=== PATIENT | female | born 1980 | race Caucasian/White ===

== ENCOUNTER 2018-10-14 12:47 | Emergency (ER) | payer OTHER ==
[~2018-10-14] VITALS: Ht 165.1 cm; Wt 146.5 kg
[2018-10-14 12:54] VITALS: Ht 165.1 cm; Wt 146.5 kg
[2018-10-14 14:21] VITALS: BP 147/89
== END 2018-10-14 14:21 | disposition home or self-care (01) ==
LOC: ED 12:47
DX: S93.402A Sprain of unspecified ligament of left ankle, initial encounter (principal); Z88.1 Allergy status to other antibiotic agents; W22.8XXA Striking against or struck by other objects, initial encounter; Y93.89 Activity, other specified; Y92.89 Other specified places as the place of occurrence of the external cause; Y99.8 Other external cause status
CPT/HCPCS: Q0092

== ENCOUNTER 2018-10-15 14:32 | Emergency (ER) | payer OTHER ==
[~2018-10-15] VITALS: Ht 165.1 cm; Wt 150.1 kg
[2018-10-15 14:50] VITALS: Ht 165.1 cm; Wt 150.1 kg
[2018-10-15 16:02] LABS: BASOPHIL % 0.3 % (0-2); PLATELET COUNT 276 x10^3mcL (130-400); RED CELL DISTRIBUTION WIDTH 13.9 % (11.5-14.5)
[2018-10-15 16:14] LABS: microscopic required? YES; urine erythrocyte TRACE (NEGATIVE)
[2018-10-15 16:27] LABS: AMPHETAMINE QUAL UR NONE DETECTED (See below)
[2018-10-15 16:44] LABS: CALCIUM 8.8 mg/dL (8.5-10.1); CARBON DIOXIDE 28.4 mmol/L (21-32); CHLORIDE SERUM 104 mmol/L (98-107); CREATININE SERUM 0.9 mg/dL (0.6-1.0); GFR1 > 60 mL/min; GLUCOSE SERUM 108 mg/dL (74-106); POTASSIUM SERUM 3.3 mmol/L (3.5-5.1); SODIUM SERUM 140 mmol/L (136-145)
[2018-10-15 16:57] LABS: ALKALINE PHOSPHATASE 116 U/L (46-116); ALT/SGPT 32 U/L (14-59); AST/SGOT 21 U/L (15-37); CHOLESTEROL 174 mg/dL (<200); HDL CHOLESTEROL 41 mg/dL (40-60); MAGNESIUM 1.9 mg/dL (1.8-2.4); T4(THYROXINE) 7.2 ug/dL (4.7-13.3); TOTAL PROTEIN, SERUM 7.8 g/dL (6.4-8.2)
[2018-10-15 17:03] LABS: ALBUMIN 3.2 g/dL (3.4-5.0)
[2018-10-15 17:53] VITALS: BP 139/80
== END 2018-10-15 17:53 | disposition home or self-care (01) ==
LOC: ED 14:32
PROVIDERS: Emergency Medicine
DX: I16.0 Hypertensive urgency (principal); F41.9 Anxiety disorder, unspecified; E87.6 Hypokalemia; F17.210 Nicotine dependence, cigarettes, uncomplicated; I10 Essential (primary) hypertension; E66.01 Morbid (severe) obesity due to excess calories; Z68.43 Body mass index [BMI] 50.0-59.9, adult; Z90.49 Acquired absence of other specified parts of digestive tract; Z98.890 Other specified postprocedural states; Z88.1 Allergy status to other antibiotic agents
CPT/HCPCS: 36415; 82962; 99406

== ENCOUNTER 2019-05-19 19:21 | Emergency (ER) | payer OTHER ==
[~2019-05-19] VITALS: Ht 167.6 cm; Wt 148.8 kg
[2019-05-19 19:25] VITALS: Ht 167.6 cm; Wt 148.8 kg
[2019-05-19 20:56] LABS: BASOPHIL % 0.4 % (0-2); PLATELET COUNT 278 x10^3mcL (130-400); RED CELL DISTRIBUTION WIDTH 13.9 % (11.5-14.5)
[2019-05-19 20:59] LABS: CALCIUM 8.6 mg/dL (8.5-10.1); CARBON DIOXIDE 28.6 mmol/L (21-32); CREATININE SERUM 1.1 mg/dL (0.6-1.0); POTASSIUM SERUM 3.1 mmol/L (3.5-5.1)
[2019-05-19 21:11] LABS: ALBUMIN 3.4 g/dL (3.4-5.0); BILIRUBIN TOTAL 0.32 mg/dL (0.20-1.00); FREE T4 1.13 ng/dL (0.76-1.46)
[2019-05-20 00:49] VITALS: BP 114/75
== END 2019-05-20 00:49 | disposition home or self-care (01) ==
LOC: ED 19:21
PROVIDERS: Emergency Medicine
DX: E87.6 Hypokalemia (principal); R20.2 Paresthesia of skin; R55 Syncope and collapse; R06.00 Dyspnea, unspecified; I10 Essential (primary) hypertension; Z90.49 Acquired absence of other specified parts of digestive tract; Z88.1 Allergy status to other antibiotic agents
CPT/HCPCS: 84439; 85378; Q9967